=== PATIENT | female | born 1975 | race Two or more races ===

== ENCOUNTER 2024-11-20 11:01 | Inpatient (IN) | payer BC, SELFPAY ==
[2024-11-14 12:43] VITALS: BMI 28.9
[2024-11-14 13:04] LABS: Hemoglobin 14.2 g/dL (12.0-16.0); Mean Corp Hgb Conc. 33.8 g/dL (33.0-37.0); Mean Corpuscular Hgb 29.6 pg (27.0-31.0); Mean Corpuscular Volume 87.7 fL (81.0-99.0); Mean Platelet Volume 11.2 fL (7.4-10.4); Platelet Count 307 10^3/uL (130-400); Red Blood Cell Count 4.79 10^6/uL (4.20-5.40); Red Cell Dist. Width 12.8 % (11.5-14.5); White Blood Cell Count 5.8 10^3/uL (4.8-10.8)
[2024-11-14 13:12] LABS: INR 0.98; PT 13.5 Sec (11.4-14.6)
[2024-11-14 13:13] LABS: APTT 28.1 Sec (23.4-35.0)
[2024-11-14 13:44] LABS: ALT (SGPT) 29 U/L (0-35); AST (SGOT) 20 U/L (14-36); Albumin 4.4 g/dl (3.5-5.0); Alkaline Phosphatase 74 U/L (38-126); Blood Urea Nitrogen 17 mg/dl (7-17); Calcium 9.4 mg/dl (8.4-10.2); Carbon Dioxide 26 mmol/L (22-30); Chloride 106 mmol/L (98-107); Estimated Creatinine Clearance 78 ml/min; Glucose 82 mg/dl (70-99); Potassium 4.3 mmol/L (3.5-5.1); Sodium 143 mmol/L (135-145); Total Bilirubin 0.6 mg/dl (0.2-1.3); Total Protein 6.9 g/dl (6.3-8.2); eGFR > 60.00
[2024-11-14 14:48] LABS: Glycohemoglobin (HgbA1c) 5.4 % (4.0-5.6)
[2024-11-14 15:10] LABS: CEA 1.16 ng/ml
[2024-11-20] VITALS (14 sets, daily range): BP systolic 95–143; BP diastolic 64–86; BMI 28.9; BMI 32.0
[2024-11-20] MEDS: NORMOSOL-R/PLASMALYTE-A 1000 IV ×2 (11:50→21:33)
[2024-11-20] MEDS: ENTEREG 12 MG PO (12:10)
[2024-11-20] MEDS: HEPARIN 5000 UNITS SC (12:10)
[2024-11-20] MEDS: TYLENOL 1000 MG PO (12:10)
--- NOTE | 2024-11-20 16:34 | W.OR.COLCA ---
Colon Cancer Post Op Note
Immediate Post Op
Primary Surgeon: Lito Arora MD
Assistants: JHONY Chun and CHRISSY Germain
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
Post-op Diagnosis: Same
Procedure Performed: Robotic right colectomy with intracorporeal anastomosis
Anesthesia Type: GET
Specimen / Cultures: Right colon
Estimated Blood Loss: 15cc
Complications: None
Operative Findings: No evidence of metastatic diseasea
Ink and polypoid mass in the cecum
Patient's partner updated in the waiting room
Colon Resection
Colon Resection
Operation performed with curative intent: Yes
Tumor Location: Cecum
Right Hemicolectomy: Ileocolic and Right Colic
[2024-11-20] MEDS: DILAUDID 0.5 MG IV ×3 (17:10→21:33)
[2024-11-20] MEDS: TORADOL 15 MG IV ×2 (17:11→23:51)
[2024-11-20] MEDS: TYLENOL PO (21:34)
--- NOTE | 2024-11-20 21:55 | PTCARENOTE ---
20:10 pt rec'vd from PACU, aaox3, able to make needs known, abd assessed with glued incisions noted, rondon in place and IVF, vs WNL, oriented to unit.
[2024-11-20] MEDS: ZOFRAN 4 MG IV (21:59)
[2024-11-21] MEDS: TYLENOL PO ×2 (00:34→12:00)
[2024-11-21] MEDS: TYLENOL 650 MG PO ×5 (03:20→23:04)
[2024-11-21] MEDS: ROXICODONE 5 MG PO ×2 (03:20→09:33)
[2024-11-21 03:43] VITALS: BP 124/84
[2024-11-21] MEDS: TORADOL 15 MG IV ×4 (05:17→23:03)
[2024-11-21 06:00] VITALS: BMI 31.1
[2024-11-21] MEDS: MYLICON 80 MG PO (06:36)
[2024-11-21 07:18] LABS: % Basophils 0.1 % (0-2); % Immature Granulocytes 0.8 % (0-0.5); % Monocytes 4.3 % (1.7-9.3); % Neutrophils 88.8 % (42.2-75.2); Absolute Immature Granulocytes 0.1 10^3/uL (0-0.05); Absolute Monocytes 0.7 10^3/uL (0.1-0.6); Hematocrit 36.1 % (37.0-47.0); Hemoglobin 12.6 g/dL (12.0-16.0); Mean Corp Hgb Conc. 34.9 g/dL (33.0-37.0); Mean Corpuscular Hgb 29.9 pg (27.0-31.0); Mean Corpuscular Volume 85.5 fL (81.0-99.0); Mean Platelet Volume 11.2 fL (7.4-10.4); Nucleated Red Blood Cells % 0 %; Platelet Count 280 10^3/uL (130-400); Red Blood Cell Count 4.22 10^6/uL (4.20-5.40); Red Cell Dist. Width 13.2 % (11.5-14.5); White Blood Cell Count 16.9 10^3/uL (4.8-10.8)
[2024-11-21 07:57] LABS: Blood Urea Nitrogen 9 mg/dl (7-17); Calcium 7.8 mg/dl (8.4-10.2); Carbon Dioxide 24 mmol/L (22-30); Chloride 108 mmol/L (98-107); Estimated Creatinine Clearance 96 ml/min; Glucose 106 mg/dl (70-99); Potassium 4.2 mmol/L (3.5-5.1); Sodium 140 mmol/L (135-145); eGFR > 60.00
[2024-11-21] MEDS: DILAUDID 0.5 MG IV (08:12)
[2024-11-21] MEDS: COZAAR 100 MG PO (08:13)
[2024-11-21] MEDS: ENTEREG 12 MG PO ×2 (08:13→19:52)
[2024-11-21] MEDS: LOW STRENGTH ASPIRIN 81 MG PO (08:13)
--- NOTE | 2024-11-21 08:40 | CON.HOSP ---
Consultation
-
Date/Time Consultation Requested: 11/21/2024 8:32 A.M.
Date/Time Consultation Performed: 11/21/2024 8:34 A.M.
Requesting Provider: Dr Lito Arora
Performing Provider: Dr Parks
Reason for Consultation: Tachycardia, sob, cp
Family Physician
-
Family Physician: Ceci Coughlin
Chief Complaint
-
SOB CP
History of Present Illness
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 Patient underwent surgery on
11/20 and postop patient developed right chest pain moderate to severe intensity radiated to shoulder area around 5 AM this morning associated with mild shortness of breath and palpitations. Intensity has been waxing and waning but still there and
denies nausea or vomiting syncope near syncope associated with this. Denies leg pain or swelling. Patient noticed to be tachycardic. Pulse ox normal on room air. Also noticed to be tachypneic. Patient tells me that in her postop many years back
she had a right collapse of the lung but she also had other surgeries after that and no complications. Patient also had seen her physicians as outpatient and she had an echocardiogram and a Holter monitor for what appears to be mild arrhythmia and
they were unremarkable per patient report. Patient on a regular basis does not complain of chest pain or shortness of breath on exertion. Her white blood cell count jumped from 5.8 up to 16.9 today and hemoglobin from 14.2 to 12.6. Renal function
electrolytes within normal limits. We (hospitalist) are asked to see her in consultation as soon as possible.
Medical History
Past Medical History
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
Past Surgical History: Reports Other (Partial hysterectomy, tonsillectomy, appendectomy.)
Social History
Tobacco: Non-smoker
Alcohol: None
Drug: None
Family History
Family History: Reviewed & Not Pertinent
Allergies / Home Medications
Allergies reflects when Allergies were last updated in [facility].
Home Medications with original date entered in [facility]
Allergy/Medication List:
Allergies
Allergy/AdvReac Type Severity Reaction Status Date / Time
No Known Allergies Allergy Verified 11/20/24 11:51
Home Medications
Glp1 Compound 1 dose PO WEEKLY 11/14/24
aspirin 81 mg chewable tablet 81 mg PO DAILY Blood Clot Prevention/Tx 11/14/24
losartan 100 mg tablet 100 mg PO DAILY Blood Pressure 11/14/24
metronidazole 500 mg tablet 500 mg PO .1400.1500.0 Infection 11/14/24
multivitamin 1 tab PO DAILY Supplement 11/14/24
neomycin 500 mg tablet 1,000 mg PO .1400.1500.0 Infection 11/14/24
sodium sul 1.479 gram-potas ch 0.188 gram-magnes sul 0.225 gram tablet (Sutab) 0 tab PO DIRECTED 11/14/24
Review of Systems
-
A 12 point Review of Systems was completed except as noted: Yes
Physical Exam
Vital Signs
Vital Signs
Temp Pulse Resp BP Pulse Ox
99.0 F 101 18 150/84 97
11/21/24 03:43 11/21/24 08:13 11/21/24 03:43 11/21/24 08:13 11/21/24 03:43
Physical exam:
General: Well Developed, Well Nourished and Apparent Distress due to pain.
HEENT: Normocephalic, Atraumatic and Moist Mucous Membranes
Respiratory: Clear to Auscultation; Negative Wheezes, Rales or Rhonchi
Cardiac: Regular Rhythm, tachycardic, and S1/S2
GI: Soft, Nontender and Nondistended
Musculoskeletal: No Clubbing, No Cyanosis and No Edema
Neuro: Awake, Alert and Oriented
Psych: Calm
Physical Exam
General: Other
Laboratory Results
-
Laboratory Results
11/21/24 05:34
11/21/24 05:34
PT 13.5 Sec (11.4-14.6) 11/14/24 09:56
INR 0.98 11/14/24 09:56
APTT 28.1 Sec (23.4-35.0) 11/14/24 09:56
Total Bilirubin 0.6 mg/dl (0.2-1.3) 11/14/24 09:56
AST 20 U/L (14-36) 11/14/24 09:56
ALT 29 U/L (0-35) 11/14/24 09:56
Alkaline Phosphatase 74 U/L (38-126) 11/14/24 09:56
Data Reviewed
-
Diagnostic Radiology: Image personally visualized and interpreted
Lab Data: Labs Reviewed
Impression / Plan
-
IMPRESSION:
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
PLAN:
Chest pain and shortness of breath postop:
It is possible this could be related to atelectasis postop and 'gas pain' but on the other hand she does have risk factor for thromboembolic disease so it is reasonable to obtain a stat CTA of the chest to rule out PE.
Seen and reviewed chest x-ray ordered stat and besides some atelectasis I did not see any significant abnormalities. There is some report of some air at the diaphragm level which seems to be postsurgical and will defer to surgery as to
interpretation of that.
Seen x-ray of the abdomen and no significant acute pathology on my review.
Seen and reviewed twelve-lead EKG and shows sinus tachycardia and no ischemic changes but nonspecific ST-T changes abnormalities.
Continue pain control as you are doing
Agree with cardiac monitoring
Will follow-up on the results of CTA and further recommendations forthcoming depending on results.
I would like to appreciate the consult to get us involved in the care of this complex patient. Please let us know if any other questions or concerns.
Sinus tachycardia:
Multifactorial etiology to rule out PE
She had a recent echocardiogram so no need to repeat unless abnormal CT of the chest.
Hypertension:
Continue usual antihypertensives
Neoplastic colon polyp status post right hemicolectomy:
Continue postop care
Discussed with colorectal surgery today
DVT prophylaxis:
Lovenox SQ
CODE STATUS:
Full code
Time spent 75 minutes
--- NOTE | 2024-11-21 08:55 | W.PN.CRS1 ---
Today's Communication / Plan
-
xrays
npo
ekg
tele
Assessment/Plan
-
POD#1 Robotic right colectomy with intracorporeal anastomosis
VS: tmax 99.0, HR 99-102, WBC 16.9.
-NPO
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
-Stat EKG
-Place on tele with continuous pulse ox
-I have notified the hospitalist regarding the situation who is present at bedside.
-Repeat labs in AM
-OR pathology pending
-Lovenox tonight for DVT prophylaxis. TEDS/SCDS in place.
-Maintain rondon and IVFs.
Subjective Data
Procedure
11/20/2024- Robotic right colectomy with intracorporeal anastomosis
Subjective Data
Date of Service: November 21, 2024
Patient states she was in a lot of abdominal pain last night. The pain radiated to her right chest and shoulder. This happened around 5am. She states she feels like she did when she had a collapsed lung post op 20 years ago. She is short of breath
and feels like she is not filling up her lungs. She denies nausea or vomiting. No bowel function. Denies leg pain or swelling.
Objective Data
-
Vital Signs
Temp Pulse Resp BP Pulse Ox
99.0 F 101 18 150/84 97
11/21/24 03:43 11/21/24 08:13 11/21/24 03:43 11/21/24 08:13 11/21/24 03:43
Intake & Output
11/20/24 11/21/24 11/22/24
06:59 06:59 06:59
Intake Total 1560 / 1560
Output Total 1200 / 1200
Balance 360 / 360
Intake:
Oral fluids 480 / 480
IV fluids (Total) 1080 / 1080
normosol 200 / 200
Output:
Urine, Rondon 1200 / 1200
Lab Results
11/21/24 05:34
11/21/24 05:34
Physical Exam
-
General: Other (SOB, AAOx3)
Abdomen: Soft, Non Distended and Tender (throughout, more prominent RLQ)
Extremities: No Edema and No Calf Tenderness
Skin: Warm and Dry
Incision: Clear, Dry, Intact
[2024-11-21 11:15] VITALS: BP 157/88
--- NOTE | 2024-11-21 13:01 | CM ---
CM reviewed medical records. CM met with patient in room. Patient confirmed demographics. Patient lives independently with boyfriend. Patient denies history of VN, SNF or DME. Patient is active with her PCP. Lawson uses [facility] for medication
services.
PLAN: home no needs.
[2024-11-21] MEDS: NORMOSOL-R/PLASMALYTE-A 1000 IV ×2 (13:46→19:51)
[2024-11-21 15:35] VITALS: BP 120/78
--- NOTE | 2024-11-21 16:24 | PTCARENOTE ---
Pt passed large amount of dark red blood while having BM; Reported feeling dizzy afterwards and became tachy with HR ~ 120-140's; Bp = 120/78; Assisted Pt back to chair and gown changed. Dr. Arora notified, order rec'd to check CBC. Will continue
to monitor and assess.
[2024-11-21] MEDS: LOVENOX 40 MG SC (17:13)
[2024-11-21 17:47] LABS: Hematocrit 30.1 % (37.0-47.0); Hemoglobin 10.7 g/dL (12.0-16.0); Mean Corp Hgb Conc. 35.5 g/dL (33.0-37.0); Mean Corpuscular Hgb 30.1 pg (27.0-31.0); Mean Corpuscular Volume 84.8 fL (81.0-99.0); Mean Platelet Volume 10.8 fL (7.4-10.4); Platelet Count 258 10^3/uL (130-400); Red Blood Cell Count 3.55 10^6/uL (4.20-5.40); Red Cell Dist. Width 13.2 % (11.5-14.5); White Blood Cell Count 14.4 10^3/uL (4.8-10.8)
[2024-11-21 19:33] VITALS: BP 132/76
[2024-11-21 23:27] VITALS: BP 114/73
--- NOTE | 2024-11-22 00:36 | PTCARENOTE ---
sinus tach at beginning of shift now normal sinus. no c/o chest pain. vitals wnl afebrile. rondon draining clear yellow. pt anxious and tearful at times. heart rate goes up with tearful emotions
[2024-11-22 03:12] VITALS: BP 109/72
[2024-11-22] MEDS: TYLENOL 650 MG PO ×2 (04:59→07:23)
[2024-11-22] MEDS: TORADOL 15 MG IV ×2 (05:00→10:10)
[2024-11-22 06:00] VITALS: BMI 31.2
--- NOTE | 2024-11-22 06:18 | PTCARENOTE ---
rondon catheter dc'd
[2024-11-22] MEDS: LOW STRENGTH ASPIRIN 81 MG PO (07:22)
[2024-11-22] MEDS: ENTEREG 12 MG PO (07:22)
[2024-11-22] MEDS: COZAAR 100 MG PO (07:22)
[2024-11-22] MEDS: TYLENOL PO (07:23)
[2024-11-22] MEDS: NORMOSOL-R/PLASMALYTE-A IV (07:24)
[2024-11-22 07:30] VITALS: BP 140/97
[2024-11-22 07:38] LABS: % Basophils 0.4 % (0-2); % Eosinophils 0.3 % (0-6); % Immature Granulocytes 0.5 % (0-0.5); % Lymphocytes 28.4 % (20.5-51.1); % Monocytes 7.3 % (1.7-9.3); % Neutrophils 63.1 % (42.2-75.2); Absolute Basophils 0.1 10^3/uL (0-0.2); Absolute Immature Granulocytes 0.1 10^3/uL (0-0.05); Absolute Lymphocytes 3.3 10^3/uL (1.2-3.4); Absolute Monocytes 0.8 10^3/uL (0.1-0.6); Absolute Neutrophils 7.3 10^3/uL (1.4-6.5); Hematocrit 29.1 % (37.0-47.0); Hemoglobin 10.1 g/dL (12.0-16.0); Mean Corp Hgb Conc. 34.7 g/dL (33.0-37.0); Mean Corpuscular Hgb 30.1 pg (27.0-31.0); Mean Corpuscular Volume 86.6 fL (81.0-99.0); Mean Platelet Volume 11.2 fL (7.4-10.4); Nucleated Red Blood Cells % 0 %; Platelet Count 238 10^3/uL (130-400); Red Blood Cell Count 3.36 10^6/uL (4.20-5.40); Red Cell Dist. Width 13.4 % (11.5-14.5); White Blood Cell Count 11.5 10^3/uL (4.8-10.8)
[2024-11-22 08:00] LABS: Blood Urea Nitrogen 9 mg/dl (7-17); Calcium 7.7 mg/dl (8.4-10.2); Carbon Dioxide 27 mmol/L (22-30); Chloride 110 mmol/L (98-107); Estimated Creatinine Clearance 112 ml/min; Glucose 84 mg/dl (70-99); Potassium 3.9 mmol/L (3.5-5.1); Sodium 141 mmol/L (135-145); eGFR > 60.00
--- NOTE | 2024-11-22 08:40 | W.PN.HOSP.TC ---
Today's Communication/Plan
-
Okay for discharge from our perspective.
Assessment / Plan
Assessment / Plan
Physical exam:
General: Well Developed, Well Nourished and No Apparent Distress
HEENT: Normocephalic, Atraumatic and Moist Mucous Membranes
Respiratory: Clear to Auscultation; Negative Wheezes, Rales or Rhonchi
Cardiac: Regular Rhythm and S1/S2
GI: Soft, Nontender and Nondistended. Postop findings
Musculoskeletal: No Clubbing, No Cyanosis and No Edema
Neuro: Awake, Alert and Oriented
Psych: Calm
A/P:
Chest pain and shortness of breath postop:
Resolved
Likely postop pain and atelectasis.
CTA negative for PE
EKG, chest x-ray, abdominal x-ray unremarkable
She is medically cleared for discharge soon as primary team feels appropriate.
Leukocytosis:
Reactive
Improving
Sinus tachycardia:
Improved
Reactive
Hypertension:
Continue usual antihypertensives
Neoplastic colon polyp status post right hemicolectomy:
Diet advanced per colorectal surgery
Continue postop care
DVT prophylaxis:
Lovenox SQ
CODE STATUS:
Full code
Anticipated Discharge: Today
Subjective/Interval History
-
Date of Service: November 22, 2024
Patient had chest pain and shortness of breath today. Feels well overall
Objective Data
-
Labs:
Laboratory Results
11/22/24
05:37
WBC 11.5 H
Hgb 10.1 L
Hct 29.1 L
Plt Count 238
Sodium 141
Potassium 3.9
Chloride 110 H
Carbon Dioxide 27
BUN 9
Creatinine 0.6
Glucose 84
Calcium 7.7 L
Vital Signs:
Vital Signs
Temp Pulse Resp BP Pulse Ox
98.6 F 90 16 140/97 95
11/22/24 07:30 11/22/24 07:30 11/22/24 07:30 11/22/24 07:30 11/22/24 07:30
I&O
11/21/24 11/22/24 11/23/24
06:59 06:59 06:59
Intake Total 1560 / 1560 1560 / 1560
Output Total 1200 / 1200 1950 / 1950
Balance 360 / 360 -390 / -390
[2024-11-22 11:30] VITALS: BP 136/84
--- NOTE | 2024-11-22 11:39 | W.PN.CRS1 ---
Today's Communication / Plan
-
Possible DC later today
Low residue
Assessment/Plan
-
POD# 2 robotic right colectomy with intracorporeal anastomosis
VS: Normal
WBC: 11.5 (16.3)
11/21: Short of breath yesterday with radiating chest pain. EKG sinus tach. CT chest negative for PE.
-Advance diet to low residue
- DC IV fluids
- Appreciate hospitalist
-OR pathology pending
-Lovenox tonight for DVT prophylaxis. TEDS/SCDS in place.
- Bashir discontinued, await void
- Okay to shower
- DC IV fluids
- Possible DC later today. She will need to be discharged on Lovenox 40 mill equivalents for 3 weeks given her history and neoplastic polyp. Discussed with patient who is in agreement.
Subjective Data
Procedure
11/20/2024- Robotic right colectomy with intracorporeal anastomosis
Subjective Data
Date of Service: November 22, 2024
Patient states she is hungry. Her pain is controlled. She had a bowel movement that was bloody yesterday but it has not reoccurred since. She is overall feeling much improved.
Objective Data
-
Vital Signs
Temp Pulse Resp BP Pulse Ox
98.6 F 90 16 140/97 95
11/22/24 07:30 11/22/24 07:30 11/22/24 07:30 11/22/24 07:30 11/22/24 07:30
Intake & Output
11/21/24 11/22/24 11/23/24
06:59 06:59 06:59
Intake Total 1560 / 1560 1560 / 1560
Output Total 1200 / 1200 1950 / 1950
Balance 360 / 360 -390 / -390
Intake:
Oral fluids 480 / 480 600 / 600
IV fluids (Total) 1080 / 1080 960 / 960
normosol 200 / 200
Output:
Urine, Bashir 1200 / 1200 1950 / 1950
Lab Results
11/22/24 05:37
11/22/24 05:37
Physical Exam
-
General: No Acute Distress and AOx3
Abdomen: Soft, Non Distended and Non Tender
Skin: Warm and Dry
Incision: Clear, Dry, Intact
--- NOTE | 2024-11-22 13:34 | W.DS.TRANS ---
DC Summary - Instrument Specialist
-
Discharge Instructions:
Sleep Apnea Risk Low
Discharge Diagnosis/Procedures Robotic right colectomy with intracorporeal
anastomosis
Diet Low Residue
Activity No strenuous activity
Additional Activity No lifting over 10lbs (gallon of milk)
Driving Restrictions No driving for 1 week
Bathing Restrictions OK to Shower
Wound Care Allow glue to naturally fall off. Do not pick at
incisions.
Instructions: Low-fiber diet
Stand-Alone Forms:
Changes to Home Medications: Yes
Discharge Medications:
DC Medications w/original date entered in [facility]
Glp1 Compound 1 dose PO WEEKLY 11/14/24
aspirin 81 mg chewable tablet 81 mg PO DAILY Blood Clot Prevention/Tx 11/14/24
losartan 100 mg tablet 100 mg PO DAILY Blood Pressure 11/14/24
multivitamin 1 tab PO DAILY Supplement 11/14/24
enoxaparin 40 mg/0.4 mL subcutaneous syringe (Lovenox) 40 mg (0.4 mL) SC DAILY 21 days #8.4 mL 11/22/24
tramadol 50 mg tablet 50 mg PO Q6H PRN Pain #20 tabs 11/22/24
Home Medication Changes
enoxaparin 40 mg/0.4 mL subcutaneous syringe (Lovenox) 40 mg (0.4 mL) SC DAILY 21 days #8.4 mL 11/22/24
tramadol 50 mg tablet 50 mg PO Q6H PRN Pain #20 tabs 11/22/24
Pending Results: Yes
Additional Pending Results:
pathology
--- NOTE | 2024-11-22 13:48 | CM ---
CM reviewed medical records. Plan for discharge to home with no needs.
PLAN: home no needs.
[2024-11-22 15:11] VITALS: BP 139/86
[2024-11-22 15:21] VITALS: BP 158/103
== END 2024-11-22 17:00 | disposition home or self-care (01) | DRG 330 ==
LOC: 2 SOUTH 11:01
PROVIDERS: Physician Assistant; ADMITTING PHYSICIAN Surgery; CONSULT PHYSICIAN Hospitalist; FAMILY PHYSICIAN Family Medicine
PROC: 0DTF4ZZ Resection of Right Large Intestine, Percutaneous Endoscopic Approach (ICD-10-PCS; 2024-11-20)
PROC: 8E0W4CZ Robotic Assisted Procedure of Trunk Region, Percutaneous Endoscopic Approach (ICD-10-PCS; 2024-11-20)
DX: C18.9 Malignant neoplasm of colon, unspecified (principal); I87.1 Compression of vein; J98.11 Atelectasis; D72.829 Elevated white blood cell count, unspecified; G89.18 Other acute postprocedural pain; K66.0 Peritoneal adhesions (postprocedural) (postinfection); I10 Essential (primary) hypertension; R07.89 Other chest pain; Z90.711 Acquired absence of uterus with remaining cervical stump; Z79.82 Long term (current) use of aspirin; Z79.85 Long-term (current) use of injectable non-insulin antidiabetic drugs
CPT/HCPCS: 88307; 36415; 71045; 71275; 74018; 80048; 80053; 82378; 83036; 85025; 85027; 85610; 85730; 86850; 86900; 86901; 93005; J1335; Q9967